=== PATIENT | female | born 1975 | race Caucasian/White ===

== ENCOUNTER → 2016-06-18 | Outpatient (REF) | payer BC ==
[~2016-06-18] MED LIST: ACET500C PO; ALBU17IN INH; ASPI1TAB24 PO; BOTO10VL IM; CAMBIA PO; CHLO50TA PO; CYCL10TA PO; DICY20TA11 PO; DULE100A IN; OMEP40CA2 PO; ONDA1TAB15 PO; PANT40TA2 PO; SPIR25TA2 PO; VALS1TAB46 PO
== END ==
LOC: M LAB REF 19:31
PROVIDERS: ATTEND Physician Assistant
DX: J02.9 Acute pharyngitis, unspecified (principal)

== ENCOUNTER 2016-07-03 14:12 | Emergency (ER) | payer BC ==
[2016-07-03] MEDS ORDERED: ACETAMINOPHEN 325 MG TAB As Ordered ONE (16:40)
[2016-07-03] MEDS ORDERED: CLINDAMYCIN 150 MG CAP As Ordered ONE (17:16)
--- NOTE | 2016-07-03 17:21 | EDDOCDS ---
Nurse's Notes [facility] Name: Tanya Flores Age: 41 yrs Sex: Female : 1975 Arrival Date: 07/03/2016 Time: 14:12 Bed PR Private MD: Mackenzie Razo A Diagnosis: Acute sinusitis;Diarrhea, unspecified Presentation: 07/03 14:25 Presenting complaint: Patient states: 2 weeks ago dx with strep given prescription- srm since then hot and cold. throat hurts to day and neck feels stiff. diarrhea since Saturday. didn't do f/u with PMD. Adult Sepsis Screening: The patient does not have new or worsening altered mentation. Patient's respiratory rate is less than 22. Systolic blood pressure is greater than 100. Patient has a qSOFA score of 0- Negative Sepsis Screen. Suicide/Homicide risk assessment- the patient denies having any suicidal and/or homicidal ideations and does not present with any other emotional, behavioral or mental health complaints. Status: Patient is not a biomedical field service engineer or dependent. Transition of care: patient was not received from another setting of care. 14:25 Acuity: CHANNING Level 4 srm 14:25 Method Of Arrival: Walkin/Carried/Asstd srm Triage Assessment: 14:31 General: Appears in no apparent distress, Behavior is appropriate for age, cooperative. srm Pain: Pain currently is 6 out of 10 on a pain scale. HIV screening NA for this visit Offered previously. 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 Tylenol 500mg Oral prn (Last dose: 07/03/2016 08:00) 2. amlodipine 10 mg Oral tab 1 tab once daily 3. aspirin 81 mg Oral tab 1 tab once daily 4. Botox 100 unit injection every 90 days 5. Bystolic 20 mg oral tab 2 tabs once daily 6. Cambia 50 mg oral pwpk as needed for Migraine 7. chlorthalidone 50 mg Oral tab once daily 8. Coricidin HBP Day-Night oral oral as needed 9. cyclobenzaprine 10 mg Oral tab 1 tab 3 times per day 10. dicyclomine 20 mg Oral tab 1 tab 4 times per day 11. Dulera 100-5 mcg/act twice a day 12. Protonix 40 mg Oral grps 40 mg 2 times per day 13. Zofran (as hydrochloride) 4 mg Oral tab 4 mg every 8 hours as needed 14. sertraline 100 mg oral tab 1 tab once daily 15. spironolactone 25 mg Oral tab 1 tab once daily 16. valsartan 80 mg oral tab nightly 17. Ventolin Rotahaler/Rotacaps Inhl 200 mcg as needed orn - PMHx: abnormal EKG; Asthma; GERD; Hypercholesterolemia; Hypertension; - PSHx: Cesearean Section; Tubal ligation; Cholecystectomy; Tonsillectomy; heart cath; Hysterectomy; Breast Reduction; Appendectomy; - Social history: Smoking status: Patient states was never smoker of tobacco. No barriers to communication noted, The patient speaks fluent Nauruan, Speaks appropriately for age. - Family history: Not pertinent. - : The pt / caregiver states he / she is not on anticoagulants. Home medication list is obtained from the patient. - Exposure Risk Screening:: None identified. Screenin:48 Screening information is obtained from the patient. Fall risk: No risks identified. kr3 Assistance ADL's: requires no assistance with activities of daily living. Abuse/DV Screen: The patient / caregiver reports he/she is: not in a situation that causes fear, pain or injury. Nutritional screening: No deficits noted. Advance Directives: Currently, there is no health care proxy. home support is adequate. Assessment: 17:19 General: Appears in no apparent distress, comfortable, Behavior is cooperative. kr3 Neurological: No deficits noted. Respiratory: Respiratory effort is even, unlabored. Derm: Skin is pink, warm & dry. Vital Signs: 14:14 BP 162 / 96; Pulse 100; Resp 18 S; Temp 98.4(O); Pulse Ox 100% on R/A; Weight 74.84 kg gr2 (R); Height 5 ft. 4 in. (162.56 cm) (R); Pain 3/10; 17:15 BP 143 / 91; Pulse 87; Resp 18; Temp 99.1(TE); Pulse Ox 98% on R/A; Pain 5/10; ar3 14:14 Body Mass Index 28.32 (74.84 kg, 162.56 cm) gr2 Vitals: 14:14 Log In Time: July 03, 2016 at 14:14. gr2 16:54 Strep Screen is obtained and tested: Negative, a GATSNEG culture is ordered in [facility] and sent. ED Course: 14:13 Patient visited by Tyrese Sandoval. gr2 14:13 Patient moved to Waiting gr2 14:14 Mackenzie Razo is Private Physician. gr2 14:15 Patient visited by Tyrese Sandoval. gr2 14:15 Patient moved to Pre RCE gr2 14:26 Triage Initiated srm 15:44 Twila Bonner,RN is Primary Nurse. [facility] 15:44 Aydee Plata,YAMILE is Primary Nurse. cj 15:44 Patient moved to Triage 1 cj 16:27 Chuy Hernández PA is PHCP. mo1 16:27 Hamilton Cee MD is Attending Physician. mo1 16:38 Patient visited by Chuy Hernández PA. mo1 16:44 UA Sent. ar3 16:44 -Influenza A&B Rapid Antigen - Nose Sent. ar3 16:48 Patient moved to TR2 ar3 16:58 GATS (NEGATIVE STREP SCREEN) Sent. ar3 17:12 Mackenzie Razo is Referral Physician. mo1 17:12 Patient moved to PR1 / 25 ar3 17:15 Patient visited by Nanette Ellis PCA. ar3 17:19 The patient / caregiver is instructed regarding the plan of care and ED course. Patient kr3 has correct armband on for positive identification. 17:19 No IV's were initiated during this patient's visit. No procedures done that require kr3 assistance. Administered Medications: 16:46 Drug: Acetaminophen 975 mg [acetaminophen 325 mg tablet (3 tabs)] Route: PO; kr3 17:19 Drug: Clindamycin 300 mg [clindamycin 150 mg capsule (2 caps)] Route: PO; kr3 Point of Care Testing: Urine : 16:48 hCG Reading: Negative; Control Reading: Positive; kr3 Ranges: Order Results: Lab Order: -Influenza A&B Rapid Antigen - Nose; SPEC'M 07/03/16 16:43 Test: INFLUENZA A RAPID SCR by ICA; Value: INFLUENZA A RESULTS NEGATIVE; Status: F Test: INFLUENZA A RAPID SCR by ICA; Value: Comments:; Status: F Test: INFLUENZA B RAPID SCR by ICA; Value: INFLUENZA B RESULTS NEGATIVE; Status: F Test Note: ; The Influenza test is a direct rapid immunoassay for the qualitative detection of Influenza viral antigen. Cell culture (Viral Culture) testing should be considered to confirm NEGATIVE results and to assist in detecting other viruses that can provide similar clinical symptoms. Please contact the lab within 24 hours ([phone]) if confirmatory testing is desired. Lab Order: UA; SPEC'M 07/03/16 16:43 Test: APPEARANCE, URINE; Value: HAZY; Range: CLEAR; Status: F Test: COLOR, URINE; Value: YELLOW; Range: YELLOW; Status: F Test: PH,URINE; Value: 5.0; Range: 5.0-9.0; Units: UNITS; Status: F Test: SPECIFIC GRAVITY URINE AUTO; Value: 1.035; Range: 1.002-1.035; Status: F Test: PROTEIN, URINE AUTO; Value: NEGATIVE; Range: NEGATIVE; Units: mg/dL; Status: F Test: GLUCOSE, URINE (UA) AUTO; Value: NEGATIVE; Range: NEGATIVE; Units: mg/dL; Status: F Test: KETONE, URINE AUTO; Value: NEGATIVE; Range: NEGATIVE; Units: mg/dL; Status: F Test: UROBILINOGEN, URINE AUTO; Value: 0.2; Range: 0.0-2.0; Units: mg/dL; Status: F Test: BILIRUBIN, URINE AUTO; Value: NEGATIVE; Range: NEGATIVE; Status: F Test: NITRITE, URINE AUTO; Value: NEGATIVE; Range: NEGATIVE; Status: F Test: LEUKOCYTE ESTERASE, URINE AUTO; Value: NEGATIVE; Range: NEGATIVE; Status: F Test: BLOOD, URINE BLOOD; Value: NEGATIVE; Range: NEGATIVE; Status: F Test: WBC, URINE AUTO; Value: 2; Range: 0-3; Units: /HPF; Status: F Test: RBC, URINE AUTO; Value: 4; Range: 0-3; Abnormal: Above high normal; Units: /HPF; Status: F Test: BACTERIA, URINE AUTO; Value: 1+; Range: NEGATIVE; Abnormal: Above high normal; Status: F Test: SQUAMOUS EPITHELIAL CELL UR AU; Value: 10; Range: 0-6; Units: /HPF; Status: F Test: MUCUS, URINE; Value: LARGE; Range: NEGATIVE; Status: F Test: HYALINE CAST, URINE AUTO; Value: 0; Range: 0-1; Units: /LPF; Status: F Outcome: 17:12 Discharge ordered by Provider. mo1 17:19 Discharge Assessment: patient administered narcotics - no. The following High Risk kr3 Discharge criteria are identified: None. Discharged to home ambulatory. Condition: stable. Discharge instructions given to patient, Instructed on discharge instructions, follow up and referral plans. medication usage, Demonstrated understanding of instructions, medications, Pt was receptive of discharge instructions/ teaching. Prescriptions given X 2, Work note provided to patient. No special radiology studies were completed. Property sent home with patient. 17:20 Patient left the ED. kr3 Signatures: Lore Ellis, RN RN Aydee Peacock RN RN kr3 Nanette Ellis, ANGER CONTROL COUNSELOR ANGER CONTROL COUNSELOR ar3 Twila Bonner RN RN cjh Raymond, Gainslee gr2 Chuy Hernández PA PA mo1 HANANE
--- NOTE | 2016-07-03 17:21 | EDDOCDS ---
Physician Documentation [facility] Name: Tanya Flores Age: 41 yrs Sex: Female : 1975 Arrival Date: 07/03/2016 Time: 14:12 Bed PR Private MD: Mackenzie Razo A Disposition: 07/03/16 17:12 Discharged to Home/Self Care. Impression: Acute sinusitis, Diarrhea, unspecified. - Condition is Stable. - Discharge Instructions: Food Choices to Help Relieve Diarrhea, Adult, Sinus Headache. - Prescriptions for Clindamycin HCl 300 mg Oral Capsule - take 1 capsule by ORAL route every 6 hours; 40 capsule. Fluticasone 50 mcg/actuation Nasal [place], Suspension - inhale 1 spray by INTRANASAL route 2 times per day; 1 bottle. - Work Release Form - 2 day, Medication Reconciliation, Local Pharmacy Hours form. - Follow up: Mackenzie Razo; When: Call to arrange an appointment; Reason: Recheck today's complaints, Continuance of care. - Problem is new. - Symptoms are unchanged. Historical: - Allergies: Augmentin (Vomit, Rash); steroids (raises blood sugar); Topamaxlose feeling in her legs; Zithromax (Vomit, Rash); - Home Meds: 1. Tylenol 500mg Oral prn (Last dose: 07/03/2016 08:00) 2. amlodipine 10 mg Oral tab 1 tab once daily 3. aspirin 81 mg Oral tab 1 tab once daily 4. Botox 100 unit injection every 90 days 5. Bystolic 20 mg oral tab 2 tabs once daily 6. Cambia 50 mg oral pwpk as needed for Migraine 7. chlorthalidone 50 mg Oral tab once daily 8. Coricidin HBP Day-Night oral oral as needed 9. cyclobenzaprine 10 mg Oral tab 1 tab 3 times per day 10. dicyclomine 20 mg Oral tab 1 tab 4 times per day 11. Dulera 100-5 mcg/act twice a day 12. Protonix 40 mg Oral grps 40 mg 2 times per day 13. Zofran (as hydrochloride) 4 mg Oral tab 4 mg every 8 hours as needed 14. sertraline 100 mg oral tab 1 tab once daily 15. spironolactone 25 mg Oral tab 1 tab once daily 16. valsartan 80 mg oral tab nightly 17. Ventolin Rotahaler/Rotacaps Inhl 200 mcg as needed orn - PMHx: abnormal EKG; Asthma; GERD; Hypercholesterolemia; Hypertension; - PSHx: Cesearean Section; Tubal ligation; Cholecystectomy; Tonsillectomy; heart cath; Hysterectomy; Breast Reduction; Appendectomy; - Social history: Smoking status: Patient states was never smoker of tobacco. No barriers to communication noted, The patient speaks fluent Greek, Speaks appropriately for age. - Family history: Not pertinent. - : The pt / caregiver states he / she is not on anticoagulants. Home medication list is obtained from the patient. - Exposure Risk Screening:: None identified. 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 4 in. (162.56 cm) (R); Pain 3/10; 17:15 BP 143 / 91; Pulse 87; Resp 18; Temp 99.1(TE); Pulse Ox 98% on R/A; Pain 5/10; ar3 14:14 Body Mass Index 28.32 (74.84 kg, 162.56 cm) gr2 MDM: 16:39 Acetaminophen Tablet 975 mg PO once ordered. mo1 16:39 UCG by Nursing ordered. mo1 16:40 -Influenza A&B Rapid Antigen - Nose Ordered. EDMS 16:40 UA Ordered. EDMS 16:46 Strep Screen, Nursing ordered. mo1 16:55 GATS (NEGATIVE STREP SCREEN) Ordered. EDMS 17:10 UA Reviewed. mo1 17:11 -Influenza A&B Rapid Antigen - Nose Reviewed. mo1 17:11 Clindamycin 300 mg PO once ordered. mo1 Point of Care Testing: Urine : 16:48 hCG Reading: Negative; Control Reading: Positive; kr3 Ranges: Administered Medications: 16:46 Drug: Acetaminophen 975 mg [acetaminophen 325 mg tablet (3 tabs)] Route: PO; kr3 17:19 Drug: Clindamycin 300 mg [clindamycin 150 mg capsule (2 caps)] Route: PO; kr3 Signatures: Dispatcher [employer] Lore Haddad RN RN srm Aydee Plata RN RN kr3 Chuy Hernández PA PA mo1 MTDD
--- NOTE | 2016-07-05 18:21 | EDDOCDS ---
Nurse's Notes [facility] Name: Tanya Flores Age: 41 yrs Sex: Female : 1975 Arrival Date: 07/03/2016 Time: 14:12 Bed PR Private MD: Mackenzie Razo A Diagnosis: Acute sinusitis;Diarrhea, unspecified Presentation: 07/03 14:25 Presenting complaint: Patient states: 2 weeks ago dx with strep given prescription- srm since then hot and cold. throat hurts to day and neck feels stiff. diarrhea since Saturday. didn't do f/u with PMD. Adult Sepsis Screening: The patient does not have new or worsening altered mentation. Patient's respiratory rate is less than 22. Systolic blood pressure is greater than 100. Patient has a qSOFA score of 0- Negative Sepsis Screen. Suicide/Homicide risk assessment- the patient denies having any suicidal and/or homicidal ideations and does not present with any other emotional, behavioral or mental health complaints. Status: Patient is not a agricultural services director or dependent. Transition of care: patient was not received from another setting of care. 14:25 Acuity: CHANNING Level 4 srm 14:25 Method Of Arrival: Walkin/Carried/Asstd srm Triage Assessment: 14:31 General: Appears in no apparent distress, Behavior is appropriate for age, cooperative. srm Pain: Pain currently is 6 out of 10 on a pain scale. HIV screening NA for this visit Offered previously. 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 Tylenol 500mg Oral prn (Last dose: 07/03/2016 08:00) 2. amlodipine 10 mg Oral tab 1 tab once daily 3. aspirin 81 mg Oral tab 1 tab once daily 4. Botox 100 unit injection every 90 days 5. Bystolic 20 mg oral tab 2 tabs once daily 6. Cambia 50 mg oral pwpk as needed for Migraine 7. chlorthalidone 50 mg Oral tab once daily 8. Coricidin HBP Day-Night oral oral as needed 9. cyclobenzaprine 10 mg Oral tab 1 tab 3 times per day 10. dicyclomine 20 mg Oral tab 1 tab 4 times per day 11. Dulera 100-5 mcg/act twice a day 12. Protonix 40 mg Oral grps 40 mg 2 times per day 13. Zofran (as hydrochloride) 4 mg Oral tab 4 mg every 8 hours as needed 14. sertraline 100 mg oral tab 1 tab once daily 15. spironolactone 25 mg Oral tab 1 tab once daily 16. valsartan 80 mg oral tab nightly 17. Ventolin Rotahaler/Rotacaps Inhl 200 mcg as needed orn - PMHx: abnormal EKG; Asthma; GERD; Hypercholesterolemia; Hypertension; - PSHx: Cesearean Section; Tubal ligation; Cholecystectomy; Tonsillectomy; heart cath; Hysterectomy; Breast Reduction; Appendectomy; - Social history: Smoking status: Patient states was never smoker of tobacco. No barriers to communication noted, The patient speaks fluent Kosovan, Speaks appropriately for age. - Family history: Not pertinent. - : The pt / caregiver states he / she is not on anticoagulants. Home medication list is obtained from the patient. - Exposure Risk Screening:: None identified. Screenin:48 Screening information is obtained from the patient. Fall risk: No risks identified. kr3 Assistance ADL's: requires no assistance with activities of daily living. Abuse/DV Screen: The patient / caregiver reports he/she is: not in a situation that causes fear, pain or injury. Nutritional screening: No deficits noted. Advance Directives: Currently, there is no health care proxy. home support is adequate. Assessment: 17:19 General: Appears in no apparent distress, comfortable, Behavior is cooperative. kr3 Neurological: No deficits noted. Respiratory: Respiratory effort is even, unlabored. Derm: Skin is pink, warm & dry. Vital Signs: 14:14 BP 162 / 96; Pulse 100; Resp 18 S; Temp 98.4(O); Pulse Ox 100% on R/A; Weight 74.84 kg gr2 (R); Height 5 ft. 4 in. (162.56 cm) (R); Pain 3/10; 17:15 BP 143 / 91; Pulse 87; Resp 18; Temp 99.1(TE); Pulse Ox 98% on R/A; Pain 5/10; ar3 14:14 Body Mass Index 28.32 (74.84 kg, 162.56 cm) gr2 Vitals: 14:14 Log In Time: July 03, 2016 at 14:14. gr2 16:54 Strep Screen is obtained and tested: Negative, a GATSNEG culture is ordered in [facility] and sent. ED Course: 14:13 Patient visited by Tyrese Sandoval. gr2 14:13 Patient moved to Waiting gr2 14:14 Mackenzie Razo is Private Physician. gr2 14:15 Patient visited by Tyrese Sandoval. gr2 14:15 Patient moved to Pre RCE gr2 14:26 Triage Initiated [facility] 15:44 Twila Bonner,RN is Primary Nurse. [facility] 15:44 Aydee Plata,YAMILE is Primary Nurse. [facility] 15:44 Patient moved to Triage 1 cj 16:27 Chuy Hernández PA is PHCP. mo1 16:27 Hamilton Cee MD is Attending Physician. mo1 16:38 Patient visited by Chuy Hernández PA. mo1 16:44 UA Sent. ar3 16:44 -Influenza A&B Rapid Antigen - Nose Sent. ar3 16:48 Patient moved to TR2 ar3 16:58 GATS (NEGATIVE STREP SCREEN) Sent. ar3 17:12 Mackenzie Razo is Referral Physician. mo1 17:12 Patient moved to PR1 / 25 ar3 17:15 Patient visited by Nanette Ellis PCA. ar3 17:19 The patient / caregiver is instructed regarding the plan of care and ED course. Patient kr3 has correct armband on for positive identification. 17:19 No IV's were initiated during this patient's visit. No procedures done that require kr3 assistance. 17:31 [facility] Payment Agreement was scanned into [employer] and attached to record. b 17:32 [facility] Payment Agreement was scanned into [employer] and attached to record. [facility] 07/04 11:01 T-Sheet-- Draft Copy was scanned into [employer] and attached to record. gb Administered Medications: 07/03 16:46 Drug: Acetaminophen 975 mg [acetaminophen 325 mg tablet (3 tabs)] Route: PO; kr3 17:19 Drug: Clindamycin 300 mg [clindamycin 150 mg capsule (2 caps)] Route: PO; kr3 Point of Care Testing: Urine : 16:48 hCG Reading: Negative; Control Reading: Positive; kr3 Ranges: Order Results: Lab Order: -Influenza A&B Rapid Antigen - Nose; SPEC'M 07/03/16 16:43 Test: INFLUENZA A RAPID SCR by ICA; Value: INFLUENZA A RESULTS NEGATIVE; Status: F Test: INFLUENZA A RAPID SCR by ICA; Value: Comments:; Status: F Test: INFLUENZA B RAPID SCR by ICA; Value: INFLUENZA B RESULTS NEGATIVE; Status: F Test Note: ; The Influenza test is a direct rapid immunoassay for the qualitative detection of Influenza viral antigen. Cell culture (Viral Culture) testing should be considered to confirm NEGATIVE results and to assist in detecting other viruses that can provide similar clinical symptoms. Please contact the lab within 24 hours ([phone]) if confirmatory testing is desired. Lab Order: UA; SPEC'M 07/03/16 16:43 Test: APPEARANCE, URINE; Value: HAZY; Range: CLEAR; Status: F Test: COLOR, URINE; Value: YELLOW; Range: YELLOW; Status: F Test: PH,URINE; Value: 5.0; Range: 5.0-9.0; Units: UNITS; Status: F Test: SPECIFIC GRAVITY URINE AUTO; Value: 1.035; Range: 1.002-1.035; Status: F Test: PROTEIN, URINE AUTO; Value: NEGATIVE; Range: NEGATIVE; Units: mg/dL; Status: F Test: GLUCOSE, URINE (UA) AUTO; Value: NEGATIVE; Range: NEGATIVE; Units: mg/dL; Status: F Test: KETONE, URINE AUTO; Value: NEGATIVE; Range: NEGATIVE; Units: mg/dL; Status: F Test: UROBILINOGEN, URINE AUTO; Value: 0.2; Range: 0.0-2.0; Units: mg/dL; Status: F Test: BILIRUBIN, URINE AUTO; Value: NEGATIVE; Range: NEGATIVE; Status: F Test: NITRITE, URINE AUTO; Value: NEGATIVE; Range: NEGATIVE; Status: F Test: LEUKOCYTE ESTERASE, URINE AUTO; Value: NEGATIVE; Range: NEGATIVE; Status: F Test: BLOOD, URINE BLOOD; Value: NEGATIVE; Range: NEGATIVE; Status: F Test: WBC, URINE AUTO; Value: 2; Range: 0-3; Units: /HPF; Status: F Test: RBC, URINE AUTO; Value: 4; Range: 0-3; Abnormal: Above high normal; Units: /HPF; Status: F Test: BACTERIA, URINE AUTO; Value: 1+; Range: NEGATIVE; Abnormal: Above high normal; Status: F Test: SQUAMOUS EPITHELIAL CELL UR AU; Value: 10; Range: 0-6; Units: /HPF; Status: F Test: MUCUS, URINE; Value: LARGE; Range: NEGATIVE; Status: F Test: HYALINE CAST, URINE AUTO; Value: 0; Range: 0-1; Units: /LPF; Status: F Lab Order: GATS (NEGATIVE STREP SCREEN); SPEC'M 07/03/16 16:58 Test: GATS CULTURE (NEG STREP SCR); Value: GATS RESULT NEGATIVE FOR STREP PYOGENES (GROUP A); Status: F Test: GATS CULTURE (NEG STREP SCR); Value: <EXTERNAL COMMENT eCWMed> FULL REPORT IN LAB NOTES (eCW and Medent).; Status: F Outcome: 17:12 Discharge ordered by Provider. mo1 17:19 Discharge Assessment: patient administered narcotics - no. The following High Risk kr3 Discharge criteria are identified: None. Discharged to home ambulatory. Condition: stable. Discharge instructions given to patient, Instructed on discharge instructions, follow up and referral plans. medication usage, Demonstrated understanding of instructions, medications, Pt was receptive of discharge instructions/ teaching. Prescriptions given X 2, Work note provided to patient. No special radiology studies were completed. Property sent home with patient. 17:20 Patient left the ED. kr3 Signatures: Lore Ellis RN RN [facility] Kellie, Nasra, Reg Reg Aydee Plata RN RN kr3 Nanette Ellis, [employer] METAL MINER ar3 Twila Bonner RN RN cjh Raymond, Gainslee gr2 O'Hagan, Michael, PA PA mo1 Melly Juarez Chart Complete MTDD
--- NOTE | 2016-07-05 18:21 | EDDOCDS ---
Physician Documentation [facility] Name: Tanya Flores Age: 41 yrs Sex: Female : 1975 Arrival Date: 07/03/2016 Time: 14:12 Bed PR Private MD: Mackenzie Razo A Disposition: 07/03/16 17:12 Discharged to Home/Self Care. Impression: Acute sinusitis, Diarrhea, unspecified. - Condition is Stable. - Discharge Instructions: Food Choices to Help Relieve Diarrhea, Adult, Sinus Headache. - Prescriptions for Clindamycin HCl 300 mg Oral Capsule - take 1 capsule by ORAL route every 6 hours; 40 capsule. Fluticasone 50 mcg/actuation Nasal [place], Suspension - inhale 1 spray by INTRANASAL route 2 times per day; 1 bottle. - Work Release Form - 2 day, Medication Reconciliation, Local Pharmacy Hours form. - Follow up: Mackenzie Razo; When: Call to arrange an appointment; Reason: Recheck today's complaints, Continuance of care. - Problem is new. - Symptoms are unchanged. Historical: - Allergies: Augmentin (Vomit, Rash); steroids (raises blood sugar); Topamaxlose feeling in her legs; Zithromax (Vomit, Rash); - Home Meds: 1. Tylenol 500mg Oral prn (Last dose: 07/03/2016 08:00) 2. amlodipine 10 mg Oral tab 1 tab once daily 3. aspirin 81 mg Oral tab 1 tab once daily 4. Botox 100 unit injection every 90 days 5. Bystolic 20 mg oral tab 2 tabs once daily 6. Cambia 50 mg oral pwpk as needed for Migraine 7. chlorthalidone 50 mg Oral tab once daily 8. Coricidin HBP Day-Night oral oral as needed 9. cyclobenzaprine 10 mg Oral tab 1 tab 3 times per day 10. dicyclomine 20 mg Oral tab 1 tab 4 times per day 11. Dulera 100-5 mcg/act twice a day 12. Protonix 40 mg Oral grps 40 mg 2 times per day 13. Zofran (as hydrochloride) 4 mg Oral tab 4 mg every 8 hours as needed 14. sertraline 100 mg oral tab 1 tab once daily 15. spironolactone 25 mg Oral tab 1 tab once daily 16. valsartan 80 mg oral tab nightly 17. Ventolin Rotahaler/Rotacaps Inhl 200 mcg as needed orn - PMHx: abnormal EKG; Asthma; GERD; Hypercholesterolemia; Hypertension; - PSHx: Cesearean Section; Tubal ligation; Cholecystectomy; Tonsillectomy; heart cath; Hysterectomy; Breast Reduction; Appendectomy; - Social history: Smoking status: Patient states was never smoker of tobacco. No barriers to communication noted, The patient speaks fluent Vietnamese, Speaks appropriately for age. - Family history: Not pertinent. - : The pt / caregiver states he / she is not on anticoagulants. Home medication list is obtained from the patient. - Exposure Risk Screening:: None identified. 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 4 in. (162.56 cm) (R); Pain 3/10; 17:15 BP 143 / 91; Pulse 87; Resp 18; Temp 99.1(TE); Pulse Ox 98% on R/A; Pain 5/10; ar3 14:14 Body Mass Index 28.32 (74.84 kg, 162.56 cm) gr2 MDM: 16:39 Acetaminophen Tablet 975 mg PO once ordered. mo1 16:39 UCG by Nursing ordered. mo1 16:40 -Influenza A&B Rapid Antigen - Nose Ordered. EDMS 16:40 UA Ordered. EDMS 16:46 Strep Screen, Nursing ordered. mo1 16:55 GATS (NEGATIVE STREP SCREEN) Ordered. EDMS 17:10 UA Reviewed. mo1 17:11 -Influenza A&B Rapid Antigen - Nose Reviewed. mo1 17:11 Clindamycin 300 mg PO once ordered. mo1 17:31 [facility] Payment Agreement was scanned into [employer] and attached to record. gjb 17:32 [facility] Payment Agreement was scanned into [employer] and attached to record. [facility] 17:32 Financial registration complete. [facility] 07/04 11:01 T-Sheet-- Draft Copy was scanned into [employer] and attached to record. gb Point of Care Testing: Urine : 07/03 16:48 hCG Reading: Negative; Control Reading: Positive; kr3 Ranges: Administered Medications: 16:46 Drug: Acetaminophen 975 mg [acetaminophen 325 mg tablet (3 tabs)] Route: PO; kr3 17:19 Drug: Clindamycin 300 mg [clindamycin 150 mg capsule (2 caps)] Route: PO; kr3 Signatures: Dispatcher [employer] EDLore Garcia RN RN [facility] Nasra Hopkins, [facility] Reg Aydee Plata RN RN kr3 Chuy Hernández PA PA Melly England The chart was reviewed and I authenticate all verbal orders and agree with the evaluation and treatment provided.Attachments: 17:32 [facility] Payment Agreement gjb 07/04 11:01 T-Sheet-- Draft Copy gb Chart Complete MTDD
--- NOTE | 2016-07-05 18:21 | EDDOCDS ---
Physician Documentation [facility] Name: Tanya Flores Age: 41 yrs Sex: Female : 1975 Arrival Date: 07/03/2016 Time: 14:12 Bed PR Private MD: Mackenzie Razo A Disposition: 07/03/16 17:12 Discharged to Home/Self Care. Impression: Acute sinusitis, Diarrhea, unspecified. - Condition is Stable. - Discharge Instructions: Food Choices to Help Relieve Diarrhea, Adult, Sinus Headache. - Prescriptions for Clindamycin HCl 300 mg Oral Capsule - take 1 capsule by ORAL route every 6 hours; 40 capsule. Fluticasone 50 mcg/actuation Nasal [place], Suspension - inhale 1 spray by INTRANASAL route 2 times per day; 1 bottle. - Work Release Form - 2 day, Medication Reconciliation, Local Pharmacy Hours form. - Follow up: Mackenzie Razo; When: Call to arrange an appointment; Reason: Recheck today's complaints, Continuance of care. - Problem is new. - Symptoms are unchanged. Historical: - Allergies: Augmentin (Vomit, Rash); steroids (raises blood sugar); Topamaxlose feeling in her legs; Zithromax (Vomit, Rash); - Home Meds: 1. Tylenol 500mg Oral prn (Last dose: 07/03/2016 08:00) 2. amlodipine 10 mg Oral tab 1 tab once daily 3. aspirin 81 mg Oral tab 1 tab once daily 4. Botox 100 unit injection every 90 days 5. Bystolic 20 mg oral tab 2 tabs once daily 6. Cambia 50 mg oral pwpk as needed for Migraine 7. chlorthalidone 50 mg Oral tab once daily 8. Coricidin HBP Day-Night oral oral as needed 9. cyclobenzaprine 10 mg Oral tab 1 tab 3 times per day 10. dicyclomine 20 mg Oral tab 1 tab 4 times per day 11. Dulera 100-5 mcg/act twice a day 12. Protonix 40 mg Oral grps 40 mg 2 times per day 13. Zofran (as hydrochloride) 4 mg Oral tab 4 mg every 8 hours as needed 14. sertraline 100 mg oral tab 1 tab once daily 15. spironolactone 25 mg Oral tab 1 tab once daily 16. valsartan 80 mg oral tab nightly 17. Ventolin Rotahaler/Rotacaps Inhl 200 mcg as needed orn - PMHx: abnormal EKG; Asthma; GERD; Hypercholesterolemia; Hypertension; - PSHx: Cesearean Section; Tubal ligation; Cholecystectomy; Tonsillectomy; heart cath; Hysterectomy; Breast Reduction; Appendectomy; - Social history: Smoking status: Patient states was never smoker of tobacco. No barriers to communication noted, The patient speaks fluent Romanian, Speaks appropriately for age. - Family history: Not pertinent. - : The pt / caregiver states he / she is not on anticoagulants. Home medication list is obtained from the patient. - Exposure Risk Screening:: None identified. 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 4 in. (162.56 cm) (R); Pain 3/10; 17:15 BP 143 / 91; Pulse 87; Resp 18; Temp 99.1(TE); Pulse Ox 98% on R/A; Pain 5/10; ar3 14:14 Body Mass Index 28.32 (74.84 kg, 162.56 cm) gr2 MDM: 16:39 Acetaminophen Tablet 975 mg PO once ordered. mo1 16:39 UCG by Nursing ordered. mo1 16:40 -Influenza A&B Rapid Antigen - Nose Ordered. EDMS 16:40 UA Ordered. EDMS 16:46 Strep Screen, Nursing ordered. mo1 16:55 GATS (NEGATIVE STREP SCREEN) Ordered. EDMS 17:10 UA Reviewed. mo1 17:11 -Influenza A&B Rapid Antigen - Nose Reviewed. mo1 17:11 Clindamycin 300 mg PO once ordered. mo1 17:31 [facility] Payment Agreement was scanned into [employer] and attached to record. gjb 17:32 [facility] Payment Agreement was scanned into [employer] and attached to record. [facility] 17:32 Financial registration complete. [facility] 07/04 11:01 T-Sheet-- Draft Copy was scanned into [employer] and attached to record. gb Point of Care Testing: Urine : 07/03 16:48 hCG Reading: Negative; Control Reading: Positive; kr3 Ranges: Administered Medications: 16:46 Drug: Acetaminophen 975 mg [acetaminophen 325 mg tablet (3 tabs)] Route: PO; kr3 17:19 Drug: Clindamycin 300 mg [clindamycin 150 mg capsule (2 caps)] Route: PO; kr3 Signatures: Dispatcher [employer] EDLore Garcia RN RN [facility] Nasra Hopkins, [facility] Reg Aydee Plata RN RN kr3 Chuy Hernández PA PA Melly England The chart was reviewed and I authenticate all verbal orders and agree with the evaluation and treatment provided.Attachments: 17:32 [facility] Payment Agreement gjb 07/04 11:01 T-Sheet-- Draft Copy gb Chart Complete MTDD
== END 2016-07-03 17:20 | disposition home or self-care (01) ==
LOC: M ED 14:12
DX: J01.90 Acute sinusitis, unspecified (principal); R19.7 Diarrhea, unspecified; I10 Essential (primary) hypertension; J45.909 Unspecified asthma, uncomplicated; E78.00 Pure hypercholesterolemia, unspecified; K21.9 Gastro-esophageal reflux disease without esophagitis; R94.31 Abnormal electrocardiogram [ECG] [EKG]; Z79.899 Other long term (current) drug therapy; Z79.82 Long term (current) use of aspirin; Z79.51 Long term (current) use of inhaled steroids; Z88.1 Allergy status to other antibiotic agents; Z88.8 Allergy status to other drugs, medicaments and biological substances

== ENCOUNTER → 2016-08-31 | Outpatient (CLI) | payer BC ==
[~2016-08-31] VITALS: Ht 162.6 cm; Wt 113.4 kg
[~2016-08-31] MED LIST changes: +NS 1,000 ML IV SCH; +PROPOFOL 200 MG/20 ML VIAL As Ordered ONE
--- NOTE | 2016-08-31 15:23 | ROOR ---
Patient Name: Tanya Flores Procedure Date: 08/31/2016 3:07 PM Date of : 1975 Age: 41 Room: [facility] Gender: Female Note Status: Finalized Procedure: Upper GI endoscopy Indications: Epigastric abdominal pain, Endoscopy to assess diarrhea in patient suspected of having disease of the small-bowel Providers: Scotty RODRIGUEZ MD Referring MD: SULEMAN GIRON MD Requesting Provider: Medicines: Monitored Anesthesia Care Complications: No immediate complications. Procedure: Pre-Anesthesia Assessment: - The heart rate, respiratory rate, oxygen saturations, blood pressure, adequacy of pulmonary ventilation, and response to care were monitored throughout the procedure. The Endoscope was introduced through the mouth, and advanced to the second part of duodenum. The upper GI endoscopy was accomplished without difficulty. The patient tolerated the procedure well. Findings: The esophagus was normal. The stomach was normal. The examined duodenum was normal. Biopsies for histology were taken with a cold forceps for evaluation of celiac disease. Impression: - Normal esophagus. - Normal stomach. - Normal examined duodenum. Biopsied. Recommendation: - Continue present medications. - Observe patient's clinical course. - Telephone endoscopist for pathology results in 2 weeks. Scotty Rodriguez MD Scotty RODRIGUEZ MD 08/31/2016 3:23:39 PM This report has been signed electronically. Number of Addenda: 0 Note Initiated On: 08/31/2016 3:07 PM Estimated Blood Loss: Estimated blood loss: none.
--- NOTE | 2016-08-31 15:36 | ROOR ---
Patient Name: Tanya Flores Procedure Date: 08/31/2016 3:07 PM Date of : 1975 Age: 41 Room: [facility] Gender: Female Note Status: Finalized Procedure: Colonoscopy Indications: Generalized abdominal pain, Clinically significant diarrhea of unexplained origin, Exclusion of colitis, Suspected irritable bowel syndrome Providers: Scotty RODRIGUEZ MD Referring MD: SULEMAN GIRON MD Requesting Provider: Medicines: Monitored Anesthesia Care Complications: No immediate complications. Procedure: Pre-Anesthesia Assessment: - The heart rate, respiratory rate, oxygen saturations, blood pressure, adequacy of pulmonary ventilation, and response to care were monitored throughout the procedure. The Colonoscope was introduced through the anus and advanced to 6 cm into the ileum. The colonoscopy was performed without difficulty. The patient tolerated the procedure well. The quality of the bowel preparation was good. Findings: The perianal and digital rectal examinations were normal. (Exam: Complete, Prep: Good or Excellent.) The terminal ileum appeared normal. Small Internal Hemorrhoids. The entire examined colon appeared normal on direct and retroflexion views. Biopsies for histology were taken with a cold forceps from the entire colon for evaluation of microscopic colitis. Impression: - Small Internal Hemorrhoids. - The terminal ileum was normal. - The entire colon is normal on direct and retroflexion views. - Biopsies were taken with a cold forceps from the entire colon for evaluation of microscopic colitis. - (Irritable Bowel Syndrome/IBS suspected.) Recommendation: - Telephone endoscopist for pathology results in 2 weeks. - Use Bentyl (dicyclomine) 20 mg PO TID 30 min AC. - (the script was sent to your pharmacy on file) Scotty Rodriguez MD Scotty RODRIGUEZ MD 08/31/2016 3:35:55 PM This report has been signed electronically. Number of Addenda: 0 Note Initiated On: 08/31/2016 3:07 PM Estimated Blood Loss: Estimated blood loss: none.
[2016-08-31 15:55] VITALS: BP 142/90
== END | disposition home or self-care (01) ==
LOC: M OPP 13:31
PROVIDERS: ATTEND Internal Medicine Gastroenterology
DX: R10.9 Unspecified abdominal pain (principal); K64.8 Other hemorrhoids; I10 Essential (primary) hypertension; R16.0 Hepatomegaly, not elsewhere classified; K21.9 Gastro-esophageal reflux disease without esophagitis; J45.909 Unspecified asthma, uncomplicated; G47.30 Sleep apnea, unspecified; G43.909 Migraine, unspecified, not intractable, without status migrainosus; Z79.899 Other long term (current) drug therapy; Z79.82 Long term (current) use of aspirin; Z79.51 Long term (current) use of inhaled steroids; Z88.0 Allergy status to penicillin; Z88.1 Allergy status to other antibiotic agents; Z88.8 Allergy status to other drugs, medicaments and biological substances

== ENCOUNTER → 2017-01-14 | Outpatient (CLI) | payer OTHER ==
[~2017-01-14] MED LIST changes: +ASPI-161 PO; -ASPI1TAB24 PO; -NS 1,000 ML IV SCH; -ONDA1TAB15 PO; +ONDA4TAB5 PO; -PROPOFOL 200 MG/20 ML VIAL As Ordered ONE
--- NOTE | 2017-01-15 09:44 | REP ---
MRI right knee without contrast: History: Internal derangement. Injury 1 week ago in a fall. Right knee pain. No comparison MR study. Comparison knee radiographs are from January 10, 2017. Technique: Axial, sagittal, and coronal imaging planes were utilized. T1 and T2 weighted and proton density weighted scans were obtained with and without fat saturation in the usual fashion. MRI findings: Cortical and medullary bone signal intensity are normal. There is no evidence of occult fracture or significant marrow edema. There is a small joint effusion. No Llanos's cyst is seen. Periarticular soft tissue swelling is seen superficial to the medial patellar retinaculum. Patellar and quadriceps tendons are intact. Anterior and posterior cruciate ligaments have an intact appearance. There is some thickening and adjacent edema at the proximal portion medial collateral ligament which may reflect a strain injury. There is no evidence of lateral collateral ligament disruption. There is no evidence of medial or lateral meniscal tear. No evidence of loose body. Impression: Soft-tissue swelling adjacent to the proximal portion the medial collateral ligament consistent with strain or partial tear. Otherwise no internal derangement seen. Small joint effusion. Signed by Stephen Jose MD 01/15/2017 12:13 P
== END ==
LOC: M RAD 18:48
PROVIDERS: ATTEND Family Medicine
DX: M23.8X1 Other internal derangements of right knee (principal)

== ENCOUNTER 2018-03-18 08:01 | Emergency (ER) | payer OTHER ==
[2018-03-18] MEDS: CHLORTHALIDONE 25 MG TAB PO (08:50)
[2018-03-18] MEDS: NEBIVOLOL 5 MG TAB (BYSTOLIC) PO (09:26)
== END 2018-03-18 10:41 | disposition home or self-care (01) ==
LOC: M ED 08:01
DX: H93.12 Tinnitus, left ear (principal); I10 Essential (primary) hypertension; R51 Headache; K25.9 Gastric ulcer, unspecified as acute or chronic, without hemorrhage or perforation; G43.909 Migraine, unspecified, not intractable, without status migrainosus; Z88.0 Allergy status to penicillin; Z88.6 Allergy status to analgesic agent; Z88.1 Allergy status to other antibiotic agents; Z88.8 Allergy status to other drugs, medicaments and biological substances; Z79.899 Other long term (current) drug therapy; Z79.51 Long term (current) use of inhaled steroids; Z79.890 Hormone replacement therapy
CPT/HCPCS: 70450

== ENCOUNTER → 2018-04-03 | Outpatient (CLI) | payer OTHER ==
[~2018-04-03] MED LIST changes: -ACET500C PO; -ALBU17IN INH; -ASPI-161 PO; -BOTO10VL IM; -CAMBIA PO; -CHLO50TA PO; -CYCL10TA PO; -DICY20TA11 PO; -DULE100A IN; -OMEP40CA2 PO; -ONDA4TAB5 PO; -PANT40TA2 PO; +PROHANCE 279.3MG/ML 15ML VIAL (A9576) As Ordered; +PROHANCE 279.3MG/ML 5ML VIAL (A9576) As Ordered; -SPIR25TA2 PO; -VALS1TAB46 PO
== END ==
LOC: M RAD 07:28
DX: E23.6 Other disorders of pituitary gland (principal); H91.23 Sudden idiopathic hearing loss, bilateral; H93.19 Tinnitus, unspecified ear
CPT/HCPCS: A9576

== ENCOUNTER → 2019-06-22 | Outpatient (CLI) | payer OTHER ==
[~2019-06-22] MED LIST changes: +ACET500C PO; +ALBU17IN INH; +ASPI-161 PO; +BOTO10VL IM; +BYST20TA2; +CAMBIA PO; +CHLO50TA PO; +CYCL10TA PO; +DICY20TA11 PO; +DULE100A IN; +ESTR1TAB; +OMEP40CA97 PO; +ONDA-83 PO; +PANT40TA3 PO; -PROHANCE 279.3MG/ML 15ML VIAL (A9576) As Ordered; -PROHANCE 279.3MG/ML 5ML VIAL (A9576) As Ordered; +SERT-138; +SPIR-10 PO; +VALS1TAB66 PO
[2019-06-22 13:47] LABS: HEMATOCRIT 42.8 % (36.0-47.0); HEMOGLOBIN 14.2 g/dl (12.0-15.5); MEAN CORPUSCULAR HEMOGLOBIN 28.3 pg (27.0-33.0); MEAN CORPUSCULAR HGB CONC 33.2 g/dl (32.0-36.5); MEAN CORPUSCULAR VOLUME 85.4 fl (80.0-96.0); PLATELET COUNT, AUTOMATED 308 10^3/uL (150-450); RED BLOOD COUNT 5.01 10^6/uL (4.00-5.40); WHITE BLOOD COUNT 8.7 10^3/uL (4.0-10.0)
[2019-06-22 14:24] LABS: ALBUMIN 4.1 GM/DL (3.2-5.2); ALT/SGPT 54 U/L (12-78); BILIRUBIN,TOTAL 0.6 MG/DL (0.2-1.0); BLOOD UREA NITROGEN 14 MG/DL (7-18); CALCIUM LEVEL 9.8 MG/DL (8.5-10.1); CARBON DIOXIDE LEVEL 27 MEQ/L (21-32); CHLORIDE LEVEL 104 MEQ/L (98-107); CHOLESTEROL LEVEL 217 MG/DL (<200); CHOLESTEROL RISK RATIO 5.166 (<5); CREATININE FOR GFR 0.59 MG/DL (0.55-1.30); GLOMERULAR FILTRATION RATE > 60.0 (>58); GLUCOSE, FASTING 87 MG/DL (70-100); HDL CHOLESTEROL 42 MG/DL (>40); LDL CHOLESTEROL 126 MG/DL (<100); NON-HDL-C 175 MG/DL; POTASSIUM SERUM 4.2 MEQ/L (3.5-5.1); SODIUM LEVEL 138 MEQ/L (136-145); TOTAL PROTEIN 7.4 GM/DL (6.4-8.2); TRIGLYCERIDES LEVEL 246 MG/DL (<150)
== END ==
LOC: M LAB 12:39
PROVIDERS: ATTEND Family Medicine
DX: E55.9 Vitamin D deficiency, unspecified (principal); E66.9 Obesity, unspecified; R53.83 Other fatigue

== ENCOUNTER 2021-02-02 09:29 | Emergency (ER) | payer OTHER ==
[~2021-02-02] VITALS: Ht 162.6 cm; Wt 120.3 kg
[~2021-02-02 09:29] MED LIST changes: +CYCL-707 PO; -CYCL10TA PO; +OMEP40CA4 PO; -OMEP40CA97 PO; +PANT40TA29 PO; -PANT40TA3 PO
--- NOTE | 2021-02-02 10:12 | REP ---
INDICATION: CHEST PAIN. COMPARISON: 05/08/2016. TECHNIQUE: Single portable AP view of the chest was performed. FINDINGS: There is no acute infiltrate or pulmonary edema. Lungs are clear. The heart is not significantly enlarged. The mediastinal silhouette is unremarkable. The visualized osseous structures are intact. IMPRESSION: No acute pulmonary disease. <Electronically signed by Terell Jorge > 02/02/21 [id number]
--- NOTE | 2021-02-02 10:38 | REP ---
INDICATION: swelling/pain COMPARISON: None. TECHNIQUE: Real time compression and duplex Doppler interrogation of the right lower extremity deep venous system is performed, including the left common femoral vein.Compression of the right peroneal and posterior tibial veins is performed. FINDINGS: The right common femoral, superficial femoral and popliteal veins are fully compressible with transducer pressure and demonstrate normal spontaneous and phasic flow, without evidence of deep venous thrombosis.The left common femoral vein demonstrates no thrombus.The visualized right peroneal and posterior tibial veins demonstrate no thrombus. IMPRESSION: No evidence of deep venous thrombosis of the right lower extremity femoral popliteal venous system.The visualized right peroneal and posterior tibial veins demonstrate no thrombus. <Electronically signed by Terell Joreg > 02/02/21 [id number]
[2021-02-02] MEDS ORDERED: ISOVUE-370 76% 100ML VIAL As Ordered ONE (11:17)
[2021-02-02 11:25] LABS: ALBUMIN 3.6 GM/DL (3.2-5.2); BILIRUBIN,DIRECT 0.2 MG/DL (0.0-0.2); BILIRUBIN,TOTAL 0.7 MG/DL (0.2-1.0); THYROID STIMULATING HORMONE 1.71 uIU/ML (0.358-3.740); TOTAL PROTEIN 6.7 GM/DL (6.4-8.2)
[2021-02-02 11:41] LABS: BASO % 0.4 % (0.0-1.0); EOS # 0.2 10^3/uL (0.0-0.5); EOS % 3.3 % (0.0-3.0); HEMATOCRIT 43.2 % (36.0-47.0); HEMOGLOBIN 14.3 g/dl (12.0-15.5); LYMPH # 1.7 10^3/uL (1.5-5.0); MEAN CORPUSCULAR HGB CONC 33.1 g/dl (32.0-36.5); MEAN CORPUSCULAR VOLUME 84.5 fl (80.0-96.0); MONO # 0.4 10^3/uL (0.0-0.8); MONO % 8.6 % (2.0-8.0); NEUTROPHILS # 2.2 10^3/uL (1.5-8.5); NEUTROPHILS % 49.3 % (36.0-66.0); PLATELET COUNT, AUTOMATED 261 10^3/uL (150-450); RED BLOOD COUNT 5.11 10^6/uL (4.00-5.40); WHITE BLOOD COUNT 4.5 10^3/uL (4.0-10.0)
--- NOTE | 2021-02-02 12:22 | REP ---
INDICATION: pleuritic CP COMPARISON: None. TECHNIQUE: CT angiography of the chest after the intravenous administration of 75 cc Isovue 370 attention pulmonary arteries. FINDINGS: There is excellent visualization of the pulmonary arterial vasculature. No focal filling defects are present that would be considered consistent with acute pulmonary emboli. There is no mediastinal or hilar adenopathy. There are no pleural or pericardial effusions. Limited evaluation of the thoracic aorta shows no gross abnormality. The imaged upper abdomen and imaged osseous structures are within normal limits. Evaluation of the lung ballard shows patchy but particularly dependent bilateral ground-glass opacities and heaviest in the lung bases. There are no abnormal nodules or masses. IMPRESSION: 1. There is no evidence of a pulmonary embolism. 2. Ground-glass opacity seen, as described above, most consistent with subsegmental atelectatic changes. 3. Other findings as described above. <Electronically signed by Manoj Bowman > 02/02/21 [id number]
[2021-02-02 13:59] VITALS: BP 145/82
--- NOTE | 2021-02-03 05:14 | ECGEPIP ---
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
== END 2021-02-02 14:21 | disposition home or self-care (01) ==
LOC: M ED 09:29
DX: I10 Essential (primary) hypertension (principal); R07.89 Other chest pain; E11.9 Type 2 diabetes mellitus without complications; J45.909 Unspecified asthma, uncomplicated; Z86.16 Personal history of COVID-19; Z79.899 Other long term (current) drug therapy; Z88.0 Allergy status to penicillin; Z88.1 Allergy status to other antibiotic agents; Z88.8 Allergy status to other drugs, medicaments and biological substances
CPT/HCPCS: 36415; 71045; 71275; 80047; 80076; 83690; 84443; 84484; 85025; 93005; 93041; 93971; 94760; 99285; Q9967

== ENCOUNTER 2021-07-06 11:41 | Emergency (ER) | payer OTHER ==
[~2021-07-06] VITALS: Ht 162.6 cm; Wt 120.2 kg
[~2021-07-06 11:41] MED LIST changes: -DICY20TA11 PO; +DICY20TA20 PO
[2021-07-06] MEDS ORDERED: ACETAMINOPHEN TAB 650MG DOSE (2X325MG) PO ONE (14:15)
[2021-07-06] MEDS ORDERED: IBUPROFEN 600MG TAB PO ONE (14:15)
[2021-07-06 16:01] VITALS: BP 186/120
== END 2021-07-06 16:28 | disposition home or self-care (01) ==
LOC: M ED 11:41
DX: S83.92XA Sprain of unspecified site of left knee, initial encounter (principal); X50.9XXA Other and unspecified overexertion or strenuous movements or postures, initial encounter; Y92.89 Other specified places as the place of occurrence of the external cause; Y99.0 Civilian activity done for income or pay; I10 Essential (primary) hypertension; E11.9 Type 2 diabetes mellitus without complications; I25.10 Atherosclerotic heart disease of native coronary artery without angina pectoris; Z88.0 Allergy status to penicillin; Z88.1 Allergy status to other antibiotic agents; Z88.8 Allergy status to other drugs, medicaments and biological substances; Z79.899 Other long term (current) drug therapy; Z79.818 Long term (current) use of other agents affecting estrogen receptors and estrogen levels

== ENCOUNTER 2021-09-15 07:45 | Outpatient (RCR) | payer OTHER | END 2021-09-16 | LOC: M PT 07:45 | PROVIDERS: ATTEND Physician Assistant Surgical | DX: S80.01XA Contusion of right knee, initial encounter (principal); M25.562 Pain in left knee ==

== ENCOUNTER 2021-10-04 14:15 | Outpatient (RCR) | payer OTHER | END 2021-10-17 | LOC: M PT 14:15 | PROVIDERS: ATTEND Physician Assistant Surgical | DX: S80.01XA Contusion of right knee, initial encounter (principal) ==

== ENCOUNTER 2023-01-17 07:22 | Day surgery (SDC) | payer OTHER ==
[~2023-01-17] VITALS: Ht 165.1 cm; Wt 118.8 kg
[~2023-01-17 07:22] MED LIST changes: -BYST20TA2; +BYST20TA2 PO; +CARV6.25 PO; -DULE100A IN; +FAMO20TA PO; +INSU100I48 SC; +METO10TA2 PO; +MOME13HF8 IN; +NS 1,000 ML IV ONE; +OMEP-357 PO; +SPIR50TA4 PO; +TIZA4CAP PO; +TORS5TAB2 PO; +TRUL10IN SC; +VENTAER INH
[2023-01-17] MEDS ORDERED: fentaNYL 100 MCG/2 ML INJECTION As Ordered ONE (07:31)
[2023-01-17] MEDS ORDERED: propofoL 200 MG/20 ML VIAL As Ordered ONE ×2 (07:31→08:34)
[2023-01-17] MEDS ORDERED: ONDANSETRON 4MG 2ML VIAL As Ordered ONE (08:34)
[2023-01-17 08:54] VITALS: TEMP 96.8
[2023-01-17 09:07] VITALS: BP 114/63; O2SAT 94
== END 2023-01-17 09:07 | disposition home or self-care (01) ==
LOC: M OPP 07:22
PROVIDERS: ATTEND Internal Medicine Gastroenterology
DX: K57.30 Diverticulosis of large intestine without perforation or abscess without bleeding (principal); K31.A0 Gastric intestinal metaplasia, unspecified; E11.9 Type 2 diabetes mellitus without complications; G47.33 Obstructive sleep apnea (adult) (pediatric); Z99.89 Dependence on other enabling machines and devices; Z79.02 Long term (current) use of antithrombotics/antiplatelets; Z79.4 Long term (current) use of insulin; Z79.51 Long term (current) use of inhaled steroids; Z79.890 Hormone replacement therapy; Z79.899 Other long term (current) drug therapy; Z88.1 Allergy status to other antibiotic agents; Z88.6 Allergy status to analgesic agent; Z88.8 Allergy status to other drugs, medicaments and biological substances
CPT/HCPCS: 43239; 45380; 88305; J2405; J3010

== ENCOUNTER → 2024-01-07 | Outpatient (CLI) | payer OTHER ==
[~2024-01-07] MED LIST changes: -ASPI-161 PO; +ASPI-615 PO; +BYST1TAB PO; -BYST20TA2 PO; -NS 1,000 ML IV ONE
== END ==
LOC: M PLAIMG 08:36
PROVIDERS: ATTEND Specialist
DX: M50.00 Cervical disc disorder with myelopathy, unspecified cervical region (principal); M47.12 Other spondylosis with myelopathy, cervical region